=== PATIENT | male | born 1955 | race Caucasian/White ===

== ENCOUNTER → 2022-01-28 | Outpatient (CLI) | LOC: LABNPT 10:08 | DX: Z20.822 Contact with and (suspected) exposure to COVID-19 (principal) | CPT/HCPCS: 87636 ==

== ENCOUNTER → 2023-09-21 | Outpatient (CLI) | payer SELFPAY ==
--- NOTE | 2023-09-21 08:56 | Diagnostic Imaging Report ---
EXAMINATION: CT calcium scoring without contrast. TECHNIQUE: Multiple contiguous axial images were obtained through the chest without the use of intravenous contrast for purposes of calcium scoring. All CT scans use one or more of the following dose optimizing techniques: automated exposure control, MA and/or KvP adjustment based on patient size and exam type or iterative reconstruction. HISTORY: Hypertension COMPARISON: None available. FINDINGS: The calculated coronary artery calcium score is 92. Visualized portions of the lungs are clear. Heart size is normal. No pericardial effusion. Aorta is normal in caliber. No lymphadenopathy is seen. There are no suspicious osseus lesions. IMPRESSION: 1. Calculated coronary artery calcium score of 92. Dictated by: Dictated on workstation # [id number]
== END ==
LOC: RAD 07:58
PROVIDERS: ATTEND Family Medicine
DX: Z00.00 Encounter for general adult medical examination without abnormal findings (principal); I10 Essential (primary) hypertension; R06.02 Shortness of breath
CPT/HCPCS: 75571